=== PATIENT | male | born 1990 | race African-American/Black ===

== ENCOUNTER 2023-11-10 11:36 | Inpatient (IN) | payer OTHER ==
[2023-11-10 12:07] VITALS: BMI 30.2
[2023-11-10] MEDS ORDERED: BENZONATATE 200 MG CAPSULE PO PRN (13:10)
[2023-11-10] MEDS ORDERED: guaiFENesin 600 MG TABLET.ER (FP) PO PRN (13:10)
[2023-11-10] MEDS ORDERED: ONDANSETRON *ODT* 4 MG TABLET SL PRN (13:10)
[2023-11-10] MEDS ORDERED: POLYETHYLENE GLYCOL (HEALTHYLAX) 3350 17 GM PACKET PO PRN (13:10)
[2023-11-10] MEDS ORDERED: ACETAMINOPHEN 325 MG TABLET (FP) PO PRN (13:10)
[2023-11-10] MEDS ORDERED: NALOXONE HCL (KLOXXADO) 8 MG SPRAY NS PRN (13:10)
[2023-11-10] MEDS ORDERED: BISMUTH SUBSALICYLATE 262 MG/15 ML BTL PO PRN (13:10)
[2023-11-10] MEDS ORDERED: MAGNESIUM HYDROX 2400MG/30ML ORAL SUSPENSION 30 ML CUP PO PRN (13:10)
[2023-11-10] MEDS ORDERED: chlordiazePOXIDE HCL 25 MG CAPSULE PO PRN (13:10)
[2023-11-10] MEDS ORDERED: MAG HYDROX/AL HYDROX/SIMETH 30 ML UNIT-DOSE CUP PO PRN (13:10)
[2023-11-10] MEDS ORDERED: IBUPROFEN 600 MG TABLET (FP) PO PRN (13:10)
[2023-11-10] MEDS ORDERED: IBUPROFEN 400 MG TABLET (FP) PO PRN (13:10)
[2023-11-10] MEDS ORDERED: NALOXONE HCL 0.4 MG/ML VIAL IM PRN (13:10)
[2023-11-10] MEDS ORDERED: LOPERAMIDE HCL 2 MG CAPSULE PO PRN (13:10)
[2023-11-10] MEDS ORDERED: DICYCLOMINE HCL 10 MG CAPSULE PO PRN (13:10)
[2023-11-10] MEDS: NICOTINE 21 MG/24 HOURS TOPICAL PATCH TD SCH (13:54)
[2023-11-10] MEDS: PRENATAL VITAMINS W/ FOLIC ACID TABLET (FP) PO SCH (13:54)
[2023-11-10 16:46] LABS: HIV INTERPRETATION NEGATIVE (NEGATIVE)
[2023-11-10] MEDS: chlordiazePOXIDE HCL 25 MG CAPSULE PO SCH (17:47)
[2023-11-10] MEDS: THIAMINE HCL 100 MG TABLET (FP) PO SCH (22:58)
[2023-11-10] MEDS: MELATONIN 5 MG TABLETS PO SCH (22:58)
[2023-11-11] MEDS: BACITRACIN 0.9 GM PACKET TP SCH (10:47)
[2023-11-11 12:20] LABS: HEMATOCRIT 37.7 % (35.4-49); HEMOGLOBIN 12.7 GM/dL (11.7-16.9); MCH 27.6 pg (25.7-33.7); MCHC 33.7 g/dl (32.0-35.9); MEAN CELL VOLUME 81.9 fl (80-96); MEAN PLT VOLUME 9.4 fl (7.5-11.1); PLATELET COUNT 188 10^3/uL (134-434); RBC 4.61 M/mm3 (4.00-5.60); RDW 13.4 % (11.9-15.9); WHITE BLOOD COUNT 4.9 K/mm3 (4.0-10.0)
[2023-11-11 12:22] LABS: POTASSIUM 3.5 mmol/L (3.5-5.1)
[2023-11-11 12:28] LABS: ALBUMIN 3.5 g/dl (3.4-5.0)
[2023-11-11 12:29] LABS: CREATININE 0.9 mg/dL (0.55-1.3)
[2023-11-11 12:31] LABS: BILIRUBIN,TOTAL 0.2 mg/dL (0.2-1); TOT PROT 6.4 g/dl (6.4-8.2)
[2023-11-11 12:32] LABS: CALCIUM 8.8 mg/dL (8.5-10.1)
[2023-11-11] MEDS: ALBUTEROL SO4 HFA INHALER IH PRN (17:22)
[2023-11-12] MEDS: chlordiazePOXIDE HCL 25 MG CAPSULE PO SCH (05:23)
[2023-11-12] MEDS: LACTULOSE 20 GM/30 ML UDC (FOR ORAL USE ONLY) PO SCH (13:43)
[2023-11-12] MEDS ORDERED: CLOTRIMAZOLE 1% CREAM TP PRN (14:44)
[2023-11-13] MEDS ORDERED: chlordiazePOXIDE HCL 10 MG CAPSULE PO PRN
[2023-11-13] MEDS: BENZOCAINE/MENTHOL (CHLORASEPTIC ) LOZENGE MM PRN (00:51)
[2023-11-13] MEDS: chlordiazePOXIDE HCL 10 MG CAPSULE PO SCH (06:00)
[2023-11-14] MEDS: chlordiazePOXIDE HCL 10 MG CAPSULE PO SCH (05:47)
[2023-11-14] MEDS: METHOCARBAMOL 500 MG TABLET PO PRN (22:16)
[2023-11-14] MEDS: hydrOXYzine PAMOATE 25 MG CAPSULE (FP) PO PRN (22:16)
[2023-11-15] MEDS: chlordiazePOXIDE HCL 10 MG CAPSULE PO ONE (05:29)
[2023-11-15 06:10] VITALS: RESP 16
[2023-11-15 09:44] VITALS: BP 137/80; PULSE 66; TEMP 97.6
== END 2023-11-15 12:11 | disposition home or self-care (01) | DRG 774 ==
LOC: YASAS 11:36 → Y6N 13:10
PROVIDERS: ADMIT Allergy & Immunology; ATTEND Surgery
PROC: HZ2ZZZZ Detoxification Services for Substance Abuse Treatment (ICD-10-PCS; principal; 2023-11-10)
DX: F10.230 Alcohol dependence with withdrawal, uncomplicated (principal); F14.20 Cocaine dependence, uncomplicated; F12.20 Cannabis dependence, uncomplicated; F17.213 Nicotine dependence, cigarettes, with withdrawal; J45.20 Mild intermittent asthma, uncomplicated; Z28.310 Unvaccinated for COVID-19; Z28.9 Immunization not carried out for unspecified reason
CPT/HCPCS: 36415; 80053; 80305; 80307; 82140; 85027; 86780; 87389; 87635; 87811; 93005; 93010